=== PATIENT | female | born 1965 | race Caucasian/White ===

== ENCOUNTER 2024-03-20 16:31 | Inpatient (IN) | payer OTHER, SELFPAY ==
[2024-03-20] VITALS (7 sets, daily range): BP systolic 98–113; BP diastolic 57–69; BMI 24.4; BMI 23.9
--- NOTE | 2024-03-20 13:44 | ED.GENMED ---
History of Present Illness
General
Chief Complaint: Fever
Source: patient
Exam Limitations: none
Time Seen by Provider: 03/20/24 13:15
History of Present Illness
History of Present Illness:
58-year-old female with history of ulcerative colitis followed by GI presents with persistent abdominal discomfort and bloody diarrhea over the past several weeks. She was actually due for colonoscopy tomorrow. She was due to start her prep this
morning but noted she had a temperature of 100.2. She spoke with her GI team who advised she come here. She denies runny nose cough or congestion. No chest pain or shortness of breath. She does note fatigue. She notes ongoing bloody diarrhea.
No other complaints at this time
Past History
Past History
ED Past Medical History: Other (UC)
ED Past Surgical History: None
Social History
Tobacco: Non-smoker
Personal:
Living: with family
Employment: Employed
Phy Exam
Physical Exam
Physical Exam:
General: Well-appearing female no acute respiratory distress
HEENT: Normocephalic atraumatic
Heart: Regular rate and rhythm
Lungs: Clear no wheeze
Abdomen is soft mildly diffusely tender no guarding or rebound normal bowel sounds
Extremities: No cyanosis
Skin: Warm no rash
Course
Orders/Labs/Results
Orders:
Orders
03/20/24 13:42
STOOL [C difficile Antigen & Toxins] Urgent
TRE Source: Feces/Stool
Specimen Description:
Stool Culture Urgent
TRE Source: Feces/Stool
Specimen Description:
0.9% Sodium Chloride 1000 ml [Nss] 1,000 ml IV BOLUS
03/20/24 13:43
CR Obstruct Series W/pa Chest Urgent
Comment:
Reason For Exam: abdominal pain
03/20/24 13:48
EKG [Electrocardiogram (*1)] Urgent
Reason for Study: Chest Pain
EKG- Treatment ONCE
03/20/24 14:00
CMP [Comprehensive Metabolic Panel] Urgent
Complete Blood Count/With Diff Urgent
Urinalysis Reflex To Culture Urgent
Date Specimen was Collected: 03/20/24
Time Specimen was Collected: 13:40
Abnormal Lab Results
03/20/24
14:00
WBC 3.5 L 10^3/uL
(4.8-10.8)
RBC 2.63 L 10^6/uL
(4.20-5.40)
Hgb 9.5 L g/dL
(12.0-16.0)
Hct 27.1 L %
(37.0-47.0)
MCV 103.0 H fL
(81.0-99.0)
MCH 36.1 H pg
(27.0-31.0)
RDW 21.1 H %
(11.5-14.5)
Absolute Lymphs (auto) 0.8 L 10^3/uL
(1.2-3.4)
Immature Gran % 0.8 H %
(0-0.5)
Monocytes % 10.5 H %
(1.7-9.3)
Total Protein 5.6 L g/dl
(6.3-8.2)
03/20/24 14:00
03/20/24 14:00
Vital Signs
Initial and Last Documented VS:
Initial Vital Signs
Temp Pulse Resp BP Pulse Ox
100.0 F 78 20 113/66 98
03/20/24 12:59 03/20/24 12:59 03/20/24 12:59 03/20/24 12:59 03/20/24 12:59
Last Documented Vital Signs
Temp Pulse Resp BP Pulse Ox
100.0 F 74 12 113/69 99
03/20/24 12:59 03/20/24 14:00 03/20/24 14:00 03/20/24 13:41 03/20/24 14:00
MDM/Problems Addressed
Differential Diagnosis Includes:
Abdominal pain with bloody diarrhea persistent over the past several months. This is consistent with her history of ulcerative colitis. She had a temperature today of 100.2 at home. There was questionable UTI as an outpatient. Will recheck
urine. Stool cultures ordered if patient goes. Check basic labs and hydrate. Discussed findings with GI. Is likely she will need admission to hospital
*Critical Care Note
Total Time (30-74mins, 75-104mins- exclusive of procedures): Not Applicable
Update Note
Update Note:
Reviewed labs. White blood cell count is low. Hemoglobin noted. Discussed with GI who saw the patient. They plan on admitting for colonoscopy tomorrow
ED Attending Note
-
Portions of this chart may have been created with voice recognition software.� Occasional wrong word or��sound alike� substitutions may have occurred due to the inherent limitations of voice recognition software.
Discharge Plan
Departure
Patient Disposition: Admit
Date of Disposition: 03/20/24
Time of Disposition: 15:19
Admit to: Telemetry
Presentation/result/management discussed w/ accepting MD/DO: Hospitalist
Discharge Problem:
Abdominal pain
Prescriptions:
No Action
prednisone 10 MG tablet
10 mg PO .TAPER Qty: 30 0RF
Rx Instructions:
Take [id number], 33tge0ogso, 85dir7mmgl, 95vza6gpmt, 58eaf4zpqj
hydrocodone-acetaminophen 5 MG/500 MG tablet
1 tab PO .Q4-6HPRN PRN (Reason: PAIN) Qty: 20 0RF
diazepam 2 MG tablet
2 mg PO TIDPRN PRN (Reason: pain/spasm) Qty: 20 0RF
prednisone 50 MG tablet
50 mg PO DAILY Qty: 4 0RF
diazepam [Valium] 5 MG tablet
5 mg PO Q8 PRN (Reason: spasm) Qty: 12 0RF
Referrals:
Dahiana Rene CRNP [Family Provider] -
Interventions
Interventions:
*Risk Screen - Suicide Last Done: 03/20/24 12:58
*General Assessment Last Done: 03/20/24 12:59
*Neglect/Abuse Screening Last Done: 03/20/24 12:59
ED- Fall Risk Assessment Last Done: 03/20/24 13:39
*ED COVID-19 Vaccine History Last Done: 03/20/24 13:39
ED- Neurological Assessment Last Done: 03/20/24 13:39
ED-Skin Assessment Last Done: 03/20/24 13:39
Discharge Date and Time
Print Language: MONGOLIAN
[2024-03-20] MEDS: NSS 1000 IV (14:05)
[2024-03-20 14:18] LABS: Hematocrit 27.1 % (37.0-47.0); Hemoglobin 9.5 g/dL (12.0-16.0); Mean Corp Hgb Conc. 35.1 g/dL (33.0-37.0); Mean Corpuscular Hgb 36.1 pg (27.0-31.0); Mean Platelet Volume 9.6 fL (7.4-10.4); Platelet Count 361 10^3/uL (130-400); Red Blood Cell Count 2.63 10^6/uL (4.20-5.40); Red Cell Dist. Width 21.1 % (11.5-14.5); White Blood Cell Count 3.5 10^3/uL (4.8-10.8)
[2024-03-20 14:19] LABS: Urine Albumin Negative (Neg - Trace); Urine Bilirubin Negative (Negative); Urine Character Clear (Clear); Urine Color Straw; Urine Glucose Negative (Negative); Urine Ketone Negative (Negative); Urine Leukocyte Negative (Negative); Urine Nitrite Negative (Negative); Urine Occult Blood Negative (Negative); Urine Urobilinogen Negative (Neg - 1+); Urine pH 6.5 (5.0-9.0)
[2024-03-20 14:30] LABS: ALT (SGPT) 13 U/L (0-35); AST (SGOT) 15 U/L (14-36); Albumin 3.5 g/dl (3.5-5.0); Alkaline Phosphatase 59 U/L (38-126); Blood Urea Nitrogen 16 mg/dl (7-17); Calcium 9.1 mg/dl (8.4-10.2); Carbon Dioxide 26 mmol/L (22-30); Chloride 101 mmol/L (98-107); Estimated Creatinine Clearance 65 ml/min; Glucose 97 mg/dl (70-99); Potassium 3.8 mmol/L (3.5-5.1); Sodium 135 mmol/L (135-145); Total Bilirubin 0.5 mg/dl (0.2-1.3); Total Protein 5.6 g/dl (6.3-8.2); eGFR > 60.00
[2024-03-20 14:40] LABS: % Basophils 0.8 % (0-2); % Eosinophils 0.6 % (0-6); % Immature Granulocytes 0.8 % (0-0.5); % Lymphocytes 22.9 % (20.5-51.1); % Monocytes 10.5 % (1.7-9.3); % Neutrophils 64.4 % (42.2-75.2); Absolute Lymphocytes 0.8 10^3/uL (1.2-3.4); Absolute Monocytes 0.4 10^3/uL (0.1-0.6); Absolute Neutrophils 2.3 10^3/uL (1.4-6.5); Nucleated Red Blood Cells % 0 %
--- NOTE | 2024-03-20 16:03 | HPS.HSE ---
Addendum entered and electronically signed by Mary Guthrie MD 03/20/24 16:16:
Plan for colonoscopy tomorrow.
Original Note:
Family Physician
-
Family Physician: Dahiana Rene
Chief Complaint
-
bloody diarrhea
History of Present Illness
58-year-old female past medical history of ulcerative colitis, osteoporosis, presenting with persistent abdominal discomfort and bloody diarrhea over the past several weeks. She was due for colonoscopy tomorrow. She was supposed to start prep this
morning but had a temperature of 100.2. She has been tapering off of steroids for the past few weeks. She spoke with her GI doctor Dr. Joya told her to come here. She has had nausea without vomiting.
She takes 6-mercaptopurine, allopurinol and Apriso which she has been on for many years for ulcerative colitis.
She denies smoking or alcohol use or marijuana use.
Medical History
Past Medical History
Past Medical History: Reports Other (ulcerative colitis, osteoporosis)
Past Surgical History: Reports None
Social History
Tobacco: Non-smoker
Alcohol: None
Drug: None
Family History
Family History: Not pertinent
Allergies / Home Medications
Allergies reflects when Allergies were last updated in [facility].
Home Medications with original date entered in [facility]
Allergy/Medication List:
Allergies
Allergy/AdvReac Type Severity Reaction Status Date / Time
No Known Allergies Allergy Verified 03/20/24 13:03
Home Medications
diazepam 2 mg tablet 2 mg PO TIDPRN PRN pain/spasm #20 tabs 12/07/12
hydrocodone 5 mg-acetaminophen 500 mg tablet 1 tab PO .Q4-6HPRN PRN PAIN ##20 12/07/12
prednisone 10 mg tablet 10 mg PO .TAPER #30 tabs 12/07/12
diazepam 5 mg tablet (Valium) 5 mg PO Q8 PRN spasm #12 tabs 03/14/21
prednisone 50 mg tablet 50 mg PO DAILY #4 tabs 09/05/20
Review of Systems
-
History Source: Patient
A 12 point ROS was completed and negative except as noted: Yes
Constitutional: Reports No Symptoms
EENT: Reports No Symptoms
Respiratory: Reports No Symptoms
Cardiac: Reports No Symptoms
Abdomen/GI: Reports See HPI
: Reports No Symptoms
Musculoskeletal: Reports No Symptoms
Skin: Reports No Symptoms
Neurological: Reports No Symptoms
Endocrine: Reports No Symptoms
Hematologic/Lymphatic: Reports No Symptoms
Psych: Reports No Symptoms
Physical Exam
Vital Signs
Vital Signs
Temp Pulse Resp BP Pulse Ox
100.0 F 74 12 113/69 99
03/20/24 12:59 03/20/24 14:00 03/20/24 14:00 03/20/24 13:41 03/20/24 14:00
Physical Exam
General: Well Developed, Well Nourished and No Apparent Distress
HEENT: NormoCephalic, Moist mucous membranes and Atraumatic
Respiratory: Clear
Cardiac: S1/S2 and Regular Rhythm; No Murmur or Rub
GI: Soft, Non Tender, Non Distended and Normal Bowel Sounds; No Organomegaly
Rectal: Deferred by Provider
Musculoskeletal: No Clubbing, No Cyanosis and No Edema
Skin: No Rash
Neuro: Nonfocal/grossly intact
Laboratory Results
-
03/20/24 14:00
03/20/24 14:00
Laboratory Results
Total Bilirubin 0.5 mg/dl (0.2-1.3) 03/20/24 14:00
AST 15 U/L (14-36) 03/20/24 14:00
ALT 13 U/L (0-35) 03/20/24 14:00
Alkaline Phosphatase 59 U/L (38-126) 03/20/24 14:00
Data Reviewed
-
Lab Data: Labs Reviewed by me
Old Records: Reviewed
Impression/Plan
-
IMPRESSION:
PLAN:
# Ulcerative colitis flare
-Check stool culture, C. difficile
-Abdominal x-ray shows nonobstructive bowel gas pattern, mild colonic stool burden
-N.p.o.
-Continue IV fluids
-GI consulted
Acute blood loss anemia
-Hemoglobin 9.5
-Baseline around 12
-check iron studies, b12 and folate
Leukopenia
-Unknown chronicity
Osteoporosis
Full code
DVT prophylaxis�SCDs
N.p.o.
--- NOTE | 2024-03-20 16:13 | CON.GI ---
Consultation
-
Date/Time Consultation Requested: 03/20/24 at 2pm
Date/Time Consultation Performed: 03/20/24 at 3;30
Requesting Provider: Medina
Performing Provider: Cici
Reason for Consultation: UC flare
Medical History
Chief Complaint / HPI
Chief Complaint: abd pain, diarrhea
History of Present Illness:
This patient is a 58-year-old woman who has a history of longstanding ulcerative colitis. She is currently being treated with 6-mercaptopurine and Apriso. She recently saw Dr. Joya in our office on Sunday and was scheduled to have a
colonoscopy tomorrow as an outpatient to evaluate her chronic symptoms which appear to be worse. She states she had more lower abdominal cramps and rectal pain. She also was waking up with diarrhea. The diarrhea is pretty constant as she always
has been having but it was causing a lot of rectal pain due to the increase in number. She denies any nausea or vomiting. She was having some mild low-grade temperatures of 100.2 but never mounted a true fever. She does not have a cough or cold.
She does think this is part of her GI issues. She was put on prednisone 40 mg just tapered to 30. She has had many colonoscopies in the past as an outpatient.
Past Medical History
Past Medical History: Other (Ulcerative colitis)
Social History
Tobacco: Non-Smoker
Family History
Family History: Reviewed & Not Pertinent
Allergies / Home Medications
Allergy/AdvReac Type Severity Reaction Status Date / Time
No Known Allergies Allergy Verified 03/20/24 13:03
�Medication �Instructions �Recorded
diazepam 2 mg tablet 2 mg PO TIDPRN PRN pain/spasm #20 12/07/12
tabs
hydrocodone 5 mg-acetaminophen 500 1 tab PO .Q4-6HPRN PRN PAIN ##20 12/07/12
mg tablet
prednisone 10 mg tablet 10 mg PO .TAPER #30 tabs 12/07/12
diazepam 5 mg tablet (Valium) 5 mg PO Q8 PRN spasm #12 tabs 09/05/20
prednisone 50 mg tablet 50 mg PO DAILY #4 tabs 09/05/20
Review of Systems
-
All other systems: A 12 pt ROS was Negative except as stated above in HPI
Vital Signs
Temp Pulse Resp BP Pulse Ox
100.0 F 74 12 113/69 99
03/20/24 12:59 03/20/24 14:00 03/20/24 14:00 03/20/24 13:41 03/20/24 14:00
Physical Exam
Exam
General: No Apparent Distress
Cardiac: S1/S2
GI: Soft and Non Tender (mild lower abdominal tenderness)
Rectal: Other (no obvious fissures)
Neuro: AO x 3
Psych: Calm
Results
WBC 3.5 10^3/uL (4.8-10.8) L 03/20/24 14:00
Hgb 9.5 g/dL (12.0-16.0) L 03/20/24 14:00
Hct 27.1 % (37.0-47.0) L 03/20/24 14:00
MCV 103.0 fL (81.0-99.0) H 03/20/24 14:00
Plt Count 361 10^3/uL (130-400) 03/20/24 14:00
Absolute Neuts (auto) 2.3 10^3/uL (1.4-6.5) 03/20/24 14:00
Sodium 135 mmol/L (135-145) 03/20/24 14:00
Potassium 3.8 mmol/L (3.5-5.1) 03/20/24 14:00
Chloride 101 mmol/L (98-107) 03/20/24 14:00
Carbon Dioxide 26 mmol/L (22-30) 03/20/24 14:00
BUN 16 mg/dl (7-17) 03/20/24 14:00
Creatinine 0.8 mg/dL (0.6-1.0) 03/20/24 14:00
Calcium 9.1 mg/dl (8.4-10.2) 03/20/24 14:00
Total Bilirubin 0.5 mg/dl (0.2-1.3) 03/20/24 14:00
AST 15 U/L (14-36) 03/20/24 14:00
ALT 13 U/L (0-35) 03/20/24 14:00
Alkaline Phosphatase 59 U/L (38-126) 03/20/24 14:00
Assessment / Plan
-
This patient is a 58-year-old woman with a history of longstanding ulcerative colitis who was having a flare. Her flare sounds more distal as it does sound like she is having more tenesmus. She is not on Canasa suppositories but is on oral
steroids. abdominal xray non specific with no dilation. For now we will do the following;
1. colonoscopy tomorrow. THE PATIENT CAN ONLY TOLERATE ONE PREP AND BROUGHT IT IN. WILL PUT IN ORDER FOR HER TO USE HER HOME PREP
2. IVF
3. w/u if fever occurs
4. monitor hgb
5. management to be determined based on colonoscopy
-
-
Thank you for consultation and allowing me to participate in the patient's care. Please call the head of digital advertising & integration GI physician during the after hours with any questions or concerns.
[2024-03-20 19:37] LABS: Iron 31 ug/dl (37-170)
[2024-03-20 19:46] LABS: Percent Saturation 14 % (20-50); Total Iron Binding Capacity 215 ug/dl (265-497)
[2024-03-20 20:20] LABS: Ferritin 54.1 ng/ml (11.1-264.0)
[2024-03-20] MEDS: NON-FORMULARY ITEM 1 UNIT PO (20:27)
[2024-03-20 20:51] LABS: Folate 18.1 ng/ml (2.76-20); Vitamin B12 > 1000 pg/ml (239-931)
--- NOTE | 2024-03-20 23:58 | PTCARENOTE ---
Sarai KRAUS aware that pt refused to have IVF hooked up secondary to she is going to the bathroom frequently as a result of her bowel prep.
[2024-03-21] VITALS (7 sets, daily range): BP systolic 95–102; BP diastolic 53–59; BMI 23.9
[2024-03-21] MEDS: NON-FORMULARY ITEM 1 UNIT PO (05:48)
[2024-03-21 08:09] LABS: Hematocrit 30.4 % (37.0-47.0); Hemoglobin 10.6 g/dL (12.0-16.0); Mean Corp Hgb Conc. 34.9 g/dL (33.0-37.0); Mean Corpuscular Hgb 37.9 pg (27.0-31.0); Mean Corpuscular Volume 108.6 fL (81.0-99.0); Mean Platelet Volume 9.8 fL (7.4-10.4); Platelet Count 393 10^3/uL (130-400); White Blood Cell Count 4.1 10^3/uL (4.8-10.8)
[2024-03-21 08:39] LABS: ALT (SGPT) 16 U/L (0-35); AST (SGOT) 16 U/L (14-36); Alkaline Phosphatase 58 U/L (38-126); Blood Urea Nitrogen 8 mg/dl (7-17); Calcium 9.5 mg/dl (8.4-10.2); Carbon Dioxide 26 mmol/L (22-30); Chloride 102 mmol/L (98-107); Estimated Creatinine Clearance 75 ml/min; Glucose 115 mg/dl (70-99); Potassium 4.5 mmol/L (3.5-5.1); Sodium 143 mmol/L (135-145); Total Bilirubin 0.6 mg/dl (0.2-1.3); Total Protein 6.3 g/dl (6.3-8.2); eGFR > 60.00
[2024-03-21 08:50] LABS: % Eosinophils 0.5 % (0-6); % Immature Granulocytes 1.2 % (0-0.5); % Lymphocytes 29.2 % (20.5-51.1); % Neutrophils 60.1 % (42.2-75.2); Absolute Immature Granulocytes 0.1 10^3/uL (0-0.05); Absolute Lymphocytes 1.2 10^3/uL (1.2-3.4); Absolute Monocytes 0.3 10^3/uL (0.1-0.6); Absolute Neutrophils 2.5 10^3/uL (1.4-6.5); Anisocytosis 2+; Normal RBC Morphology No; Nucleated Red Blood Cells % 0.5 %; Ovalocytes 1+; Polychromasia 1+
[2024-03-21 08:51] LABS: Acanthocytes Occasional; Hypochromasia 1+
[2024-03-21 08:52] LABS: Macrocytosis 1+
--- NOTE | 2024-03-21 13:27 | W.PN.HOSP.TC ---
Today's Communication/Plan
-
see outlined plan
Assessment / Plan
Assessment / Plan
Assessment:
hx of chronic Ulcerative colitis with possible flare
- GI consulted
- check stool studies
- colonoscopy today
- continue IVF
Acute blood loss anemia
- Hemoglobin 10.6
- Baseline around 12
- follow iron studies, b12 and folate
Leukopenia
- most likely from home mercaptopurine therapy
- monitor for infectious signs
Osteoporosis
DVT ppx: SCDs
Code: Full
Anticipated Discharge: 24 - 48 hours
Subjective/Interval History
-
Date of Service: March 21, 2024
reports some cramps
Objective Data
-
Labs:
Laboratory Results
03/21/24
06:55
WBC 4.1 L
Hgb 10.6 L
Hct 30.4 L
Plt Count 393
Sodium 143 D
Potassium 4.5
Chloride 102
Carbon Dioxide 26
BUN 8
Creatinine 0.7
Glucose 115 H
Calcium 9.5
Total Bilirubin 0.6
AST 16
ALT 16
Alkaline Phosphatase 58
Vital Signs:
Vital Signs
Temp Pulse Resp BP Pulse Ox
99 F 67 20 98/53 95
03/21/24 08:24 03/21/24 08:24 03/21/24 08:24 03/21/24 08:24 03/21/24 08:24
I&O
03/20/24 03/21/24 03/22/24
06:59 06:59 06:59
Intake Total 960 / 960
Balance 960 / 960
Physical Exam
-
General: No Apparent Distress
HEENT: Normocephalic and Atraumatic
Respiratory: Negative Wheezes
Cardiac: Regular Rhythm and S1/S2
GI: Nontender and Nondistended
Musculoskeletal: No Edema
Neuro: AO x 3
Psych: Calm
Data Reviewed
-
Total Time Spent with Patient (in minutes): 41
Labs: Labs Reviewed by me
--- NOTE | 2024-03-21 15:40 | W.DS.TRANS ---
DC Summary - Family Law Legal Assistant
-
Discharge Instructions:
Discharge Diagnosis/Procedures concern for UC flare with colonoscopy
Diet Low Residue
Activity As tolerated
Instructions:
Stand-Alone Forms:
Changes to Home Medications: No
Discharge Medications:
DC Medications w/original date entered in [employer]
allopurinol 100 mg tablet 100 mg PO DAILY 03/20/24
mercaptopurine 50 mg tablet 50 mg PO DAILY 03/20/24
mesalamine 0.375 gram capsule,extended release 24 hr (Apriso) 0.75 g PO DAILY 03/20/24
prednisone 10 mg tablet 40 mg PO DAILY@1500 03/20/24
Home Medication Changes
Pending Results: No
Total time spent discharging patient (in min): 41
--- NOTE | 2024-03-22 09:12 | CM ---
met with patient at bedside.patient lives with in hous with [address],hre bed and bath is on the second level.she amb i and is i with hr adl.she has had no vn or ip rehab history.she has no dme.
PCP: dr live Pharmacy:[facility].
patient is adm with UC flare with bloody diarrhea.ivf,colonoscopy,,checking stools,monitor hgb.patient stable for dc home with no needs.
== END 2024-03-21 19:17 | disposition home or self-care (01) | DRG 386 ==
LOC: 4 WEST ACU 16:31
PROVIDERS: Physician Assistant; ADMITTING PHYSICIAN Hospitalist; ATTENDING PHYSICIAN Internal Medicine; EMERGENCY PHYSICIAN Student in an Organized Health Care Education/Training Program; FAMILY PHYSICIAN Nurse Practitioner
DX: K51.911 Ulcerative colitis, unspecified with rectal bleeding (principal); D62 Acute posthemorrhagic anemia; D70.2 Other drug-induced agranulocytosis; T45.1X5A Adverse effect of antineoplastic and immunosuppressive drugs, initial encounter; M81.0 Age-related osteoporosis without current pathological fracture; Z79.899 Other long term (current) drug therapy; Z79.52 Long term (current) use of systemic steroids
CPT/HCPCS: 88305; 74022; 80053; 81003; 82607; 82728; 82746; 83540; 83550; 85025; 87045; 87046; 87077; 87324; 87427; 87449; 88342; 93005; 96360; 99285

== ENCOUNTER → 2024-04-10 15:07 | Outpatient (REF) | payer OTHER, SELFPAY | LOC: RAD 15:07 | PROVIDERS: ATTENDING PHYSICIAN Family Medicine | DX: M79.669 Pain in unspecified lower leg (principal) | CPT/HCPCS: 93971 ==

== ENCOUNTER → 2024-06-09 13:10 | Outpatient (REF) | payer OTHER, SELFPAY | LOC: HWWDC 13:10 | PROVIDERS: ATTENDING PHYSICIAN Nurse Practitioner Adult Health; FAMILY PHYSICIAN Family Medicine | DX: Z12.31 Encounter for screening mammogram for malignant neoplasm of breast (principal) | CPT/HCPCS: 77063; 77067 ==

== ENCOUNTER → 2024-06-24 09:42 | Outpatient (REF) | payer OTHER, SELFPAY | LOC: RAD 09:42 | PROVIDERS: ATTENDING PHYSICIAN Internal Medicine Rheumatology; FAMILY PHYSICIAN Family Medicine | DX: M81.0 Age-related osteoporosis without current pathological fracture (principal); Z13.820 Encounter for screening for osteoporosis | CPT/HCPCS: 77080 ==

== ENCOUNTER → 2024-07-10 12:33 | Outpatient (REF) | payer BC, SELFPAY | LOC: RAD 12:33 | PROVIDERS: ATTENDING PHYSICIAN Internal Medicine Hematology & Oncology; FAMILY PHYSICIAN Family Medicine | DX: I82.401 Acute embolism and thrombosis of unspecified deep veins of right lower extremity (principal) | CPT/HCPCS: 93971 ==

== ENCOUNTER → 2024-07-18 09:14 | Outpatient (REF) | payer BC, SELFPAY | LOC: PAVMRI 09:14 | PROVIDERS: ATTENDING PHYSICIAN Internal Medicine; FAMILY PHYSICIAN Family Medicine | DX: K51.90 Ulcerative colitis, unspecified, without complications (principal); N82.3 Fistula of vagina to large intestine | CPT/HCPCS: 72197; A9575 ==

== ENCOUNTER → 2024-07-28 14:19 | Outpatient (REF) | payer SELFPAY | LOC: RAD 14:19 | PROVIDERS: ATTENDING PHYSICIAN Family Medicine | DX: Z13.6 Encounter for screening for cardiovascular disorders (principal) | CPT/HCPCS: 75571 ==

== ENCOUNTER → 2024-09-03 13:59 | Outpatient (REF) | payer BC, SELFPAY | LOC: HWRAD 13:59 | PROVIDERS: ATTENDING PHYSICIAN Family Medicine | DX: M79.672 Pain in left foot (principal) | CPT/HCPCS: 73650 ==

== ENCOUNTER → 2024-09-08 06:50 | Outpatient (REF) | payer BC, SELFPAY | LOC: PAVMRI 06:50 | PROVIDERS: ATTENDING PHYSICIAN Family Medicine | DX: M79.672 Pain in left foot (principal) | CPT/HCPCS: 73718 ==

== ENCOUNTER 2024-12-08 16:13 | Emergency (ER) | payer BC, SELFPAY ==
[2024-12-08 16:15] VITALS: BP 132/76
[2024-12-08 16:51] LABS: Urine Albumin Negative (Neg - Trace); Urine Bilirubin Negative (Negative); Urine Character Clear (Clear); Urine Color Yellow; Urine Glucose Negative (Negative); Urine Ketone 2+ (Negative); Urine Leukocyte 1+ (Negative); Urine Nitrite Negative (Negative); Urine Occult Blood 3+ (Negative); Urine Specific Gravity 1.015 (<1.030); Urine Urobilinogen Negative (Neg - 1+)
[2024-12-08 16:52] LABS: % Basophils 0.3 % (0-2); % Eosinophils 0.1 % (0-6); % Immature Granulocytes 0.2 % (0-0.5); % Lymphocytes 9.4 % (20.5-51.1); % Monocytes 5.3 % (1.7-9.3); % Neutrophils 84.7 % (42.2-75.2); Absolute Lymphocytes 0.9 10^3/uL (1.2-3.4); Absolute Monocytes 0.5 10^3/uL (0.1-0.6); Absolute Neutrophils 8.2 10^3/uL (1.4-6.5); Hematocrit 41.2 % (37.0-47.0); Hemoglobin 13.5 g/dL (12.0-16.0); Mean Corp Hgb Conc. 32.8 g/dL (33.0-37.0); Mean Corpuscular Hgb 29.6 pg (27.0-31.0); Mean Corpuscular Volume 90.4 fL (81.0-99.0); Mean Platelet Volume 9.5 fL (7.4-10.4); Nucleated Red Blood Cells % 0 %; Platelet Count 225 10^3/uL (130-400); Red Blood Cell Count 4.56 10^6/uL (4.20-5.40); Red Cell Dist. Width 12.9 % (11.5-14.5); White Blood Cell Count 9.7 10^3/uL (4.8-10.8)
[2024-12-08 16:57] LABS: INR 0.96; PT 13.1 Sec (11.4-14.6)
[2024-12-08 17:06] LABS: Erythrocyte Sed Rate 2 mm/hour (0-20); Lactic Acid 0.9 mmol/L (0.7-2.0)
[2024-12-08 17:09] LABS: ALT (SGPT) 19 U/L (0-35); AST (SGOT) 20 U/L (14-36); Albumin 4.3 g/dl (3.5-5.0); Alkaline Phosphatase 63 U/L (38-126); Blood Urea Nitrogen 16 mg/dl (7-17); Calcium 9.6 mg/dl (8.4-10.2); Carbon Dioxide 26 mmol/L (22-30); Chloride 104 mmol/L (98-107); Glucose 103 mg/dl (70-99); Potassium 4.1 mmol/L (3.5-5.1); Sodium 135 mmol/L (135-145); Total Bilirubin 0.7 mg/dl (0.2-1.3); Total Protein 6.8 g/dl (6.3-8.2); eGFR > 60.00
[2024-12-08 17:10] LABS: Urine Mucus Few; Urine Squamous Cell 0-2 /LPF (Few)
[2024-12-08 17:10] LABS: Lipase 86 U/L (23-300)
[2024-12-08 17:11] LABS: Urine Bacteria Few (Negative)
[2024-12-08 17:20] LABS: Troponin I < 0.012 ng/ml
[2024-12-08] MEDS: NSS 1000 IV (18:10)
[2024-12-08] MEDS: OFIRMEV 100 IV (18:10)
[2024-12-08 18:19] VITALS: BP 121/65; BMI 23.3
[2024-12-08] MEDS: MORPHINE SULFATE 2 MG IV (18:25)
[2024-12-08] MEDS: ZOFRAN 4 MG IV (18:26)
[2024-12-08] MEDS: DILAUDID 0.5 MG IV (19:22)
[2024-12-08 19:24] VITALS: BP 107/62
[2024-12-08] MEDS: TORADOL 15 MG IV (19:24)
[2024-12-08] MEDS: PEPCID 20 MG IV (19:30)
--- NOTE | 2024-12-08 19:48 | ED.GENMED ---
History of Present Illness
<Shonda Spangler NP - Last Filed: 12/09/24 00:37>
General
Chief Complaint: Fever
Source: patient
Exam Limitations: none
Time Seen by Provider: 12/08/24 17:31
Nursing documentation reviewed up to this point in time: agreed with
History of Present Illness
History of Present Illness:
Patient to ED wt complaint of fever x 3 days. Stats this afternoon she developed right jaw and left groin pain. No swelling or redness. Not taking anything for pain or fever. States she has a history of ulcerative colitis and most medications
aggravate her colitis. Last PM she developed an itchy rash to torso and trunk. SHe reports she started Inflectra infusion 3 weeeks ago for her UC. Concerned that this is causing her symptoms.
Past History
<Shonda Spangler NP - Last Filed: 12/09/24 00:37>
Past History
ED Past Medical History: Other (UC, DVT)
ED Past Surgical History: None
Social History
Tobacco: Non-smoker
Personal:
Living: with family
Employment: Employed
Review of Systems
<Shonda Spangler NP - Last Filed: 12/09/24 00:37>
Review of Systems
All Other Systems: ROS reviewed and negative except as documented in HPI and ROS
Constitutional: Reports fever and fatigue
EENT: Reports no symptoms
Respiratory: Reports no symptoms
Cardiac: Reports no symptoms
ABD/GI: Reports no symptoms
: Reports no symptoms
Musculoskeletal: Reports joint pain (pain to right jaw, left groin)
Skin: Reports other (itchy rash to trunk and neck last PM, resolved own.)
Neurological: Reports weakness
Psychiatric: Reports no symptoms
Phy Exam
<Shonda Spangler NP - Last Filed: 12/09/24 00:37>
General Physical Exam
General Presentation: moderate distress
General age: appears stated age
General Skin: warm and dry
General Habitus: normal
General Mental: alert
ENT Exam
ENT Exam: EOMI, TM's normal, pharynx normal, neck supple, normocephalic and swallowing well
Cardiovascular Exam
Cardiovascular Exam: regular rate/rhythm and no edema
Pulmonary Exam
Pulmonary Exam: lungs clear and no respiratory distress
Gastrointestinal Exam
Gastrointestinal Exam: normal bowel sounds, non tender, soft, no organomegaly and non distended
Neurological Exam
Neurological Exam: alert, oriented x3 and CN II-XII intact
Musculoskeletal Exam
Musculoskeletal Exam: neuro vasc intact
Skin Exam
Skin Exam: normal color, warm/dry and no rash
Psychiatric Exam
Psychiatric Exam: normal mood/affect
Course
<Shonda Spangler MOTOR SETTER - Last Filed: 12/09/24 00:37>
Orders/Labs/Results
Orders:
Orders
12/08/24 16:20
ECG [Electrocardiogram (*1)] Urgent
Reason for Study: Other
Other Reason for Exam: jaw pain
EKG- Treatment ONCE
12/08/24 16:32
CRP [C-Reactive Protein] Urgent
Complete Blood Count/With Diff Urgent
Comprehensive Metabolic Panel Urgent
Creatine Phosphokinase Urgent
Comment: ADDON
Erythrocyte Sed Rate Urgent
Lactic Acid Urgent
Lipase Urgent
Prothrombin Time Urgent
Troponin I Urgent
12/08/24 16:42
Urinalysis Reflex To Culture Urgent
Date Specimen was Collected: 12/08/24
Time Specimen was Collected: 16:20
Urine Microscopic Reflex Cult Urgent
Urine Culture Urgent
TRE Source: U
Specimen Description:
Date Specimen was Collected: 12/08/24
Time Specimen was Collected: 16:20
12/08/24 17:54
0.9% Sodium Chloride 1000 ml [Nss] 1,000 ml IV BOLUS
Acetaminophen 1000MG/100Ml [Ofirmev] 1,000 mg in 100 ml IV ONCE
Acetaminophen IV Indication:: No MS & No Enteral Access
12/08/24 18:09
Lyme Progressive Urgent
12/08/24 18:20
Morphine Sulfate 2 mg IV NOW STA
Ondansetron HCl [Zofran] 4 mg PO NOW STA
12/08/24 18:24
Ondansetron Injectable [Zofran] 4 mg .ROUTE .STK-MED ONE
12/08/24 18:26
Ondansetron Injectable [Zofran] 4 mg IV NOW STA
12/08/24 18:47
HYDROmorphone [Dilaudid] 0.5 mg IV NOW STA
12/08/24 18:59
Ketorolac [Toradol] 15 mg IV NOW STA
12/08/24 19:24
Famotidine [Pepcid] 20 mg IV NOW STA
12/08/24 20:06
Blood Culture Urgent
TRE Source: Blood/Venous
Specimen Description:
12/08/24 20:30
Add On- LAB Urgent
Tests Added?: CPK
12/08/24 21:25
CT Facial Bones W/o Iv Contras Urgent
Comment:
Reason For Exam: Right facial pain
Pelvis w Contrast CT [CT Pelvis With Iv Contrast] Urgent
Comment:
Reason For Exam: pain
Abnormal Lab Results
12/08/24 12/08/24
16:32 16:42
MCHC 32.8 L g/dL
(33.0-37.0)
Absolute Neuts (auto) 8.2 H 10^3/uL
(1.4-6.5)
Absolute Lymphs (auto) 0.9 L 10^3/uL
(1.2-3.4)
Neutrophils % 84.7 H %
(42.2-75.2)
Lymphocytes % 9.4 L %
(20.5-51.1)
Glucose 103 H mg/dl
(70-99)
C-Reactive Protein 34.40 H mg/L
(0.0-10.00)
Urine Ketones 2+ A
(Negative)
Ur Occult Blood Reflex 3+ A
(Negative)
Leukocyte Esterase Rfl 1+ A
(Negative)
Urine RBC 7-10 A /HPF
(0-2)
Urine Bacteria (Reflex) Few A
(Negative)
12/08/24 16:32
12/08/24 16:32
Vital Signs
Initial and Last Documented VS:
Initial Vital Signs
Temp Pulse Resp BP Pulse Ox
100.5 F H 82 20 132/76 98
12/08/24 16:15 12/08/24 16:15 12/08/24 16:15 12/08/24 16:15 12/08/24 16:15
Last Documented Vital Signs
Temp Pulse Resp BP Pulse Ox
100.5 F H 68 15 90/58 96
12/08/24 16:15 12/08/24 22:03 12/08/24 22:03 12/08/24 22:03 12/08/24 22:03
<Rickey Cummings MD - Last Filed: 12/09/24 00:31>
Orders/Labs/Results
Orders:
Orders
12/08/24 16:20
ECG [Electrocardiogram (*1)] Urgent
Reason for Study: Other
Other Reason for Exam: jaw pain
EKG- Treatment ONCE
12/08/24 16:32
CRP [C-Reactive Protein] Urgent
Complete Blood Count/With Diff Urgent
Comprehensive Metabolic Panel Urgent
Creatine Phosphokinase Urgent
Comment: ADDON
Erythrocyte Sed Rate Urgent
Lactic Acid Urgent
Lipase Urgent
Prothrombin Time Urgent
Troponin I Urgent
12/08/24 16:42
Urinalysis Reflex To Culture Urgent
Date Specimen was Collected: 12/08/24
Time Specimen was Collected: 16:20
Urine Microscopic Reflex Cult Urgent
Urine Culture Urgent
TRE Source: U
Specimen Description:
Date Specimen was Collected: 12/08/24
Time Specimen was Collected: 16:20
12/08/24 17:54
0.9% Sodium Chloride 1000 ml [Nss] 1,000 ml IV BOLUS
Acetaminophen 1000MG/100Ml [Ofirmev] 1,000 mg in 100 ml IV ONCE
Acetaminophen IV Indication:: No MS & No Enteral Access
12/08/24 18:09
Lyme Progressive Urgent
12/08/24 18:20
Morphine Sulfate 2 mg IV NOW STA
Ondansetron HCl [Zofran] 4 mg PO NOW STA
12/08/24 18:24
Ondansetron Injectable [Zofran] 4 mg .ROUTE .STK-MED ONE
12/08/24 18:26
Ondansetron Injectable [Zofran] 4 mg IV NOW STA
12/08/24 18:47
HYDROmorphone [Dilaudid] 0.5 mg IV NOW STA
12/08/24 18:59
Ketorolac [Toradol] 15 mg IV NOW STA
12/08/24 19:24
Famotidine [Pepcid] 20 mg IV NOW STA
12/08/24 20:06
Blood Culture Urgent
TRE Source: Blood/Venous
Specimen Description:
12/08/24 20:30
Add On- LAB Urgent
Tests Added?: CPK
12/08/24 21:25
CT Facial Bones W/o Iv Contras Urgent
Comment:
Reason For Exam: Right facial pain
Pelvis w Contrast CT [CT Pelvis With Iv Contrast] Urgent
Comment:
Reason For Exam: pain
Abnormal Lab Results
12/08/24 12/08/24
16:32 16:42
MCHC 32.8 L g/dL
(33.0-37.0)
Absolute Neuts (auto) 8.2 H 10^3/uL
(1.4-6.5)
Absolute Lymphs (auto) 0.9 L 10^3/uL
(1.2-3.4)
Neutrophils % 84.7 H %
(42.2-75.2)
Lymphocytes % 9.4 L %
(20.5-51.1)
Glucose 103 H mg/dl
(70-99)
C-Reactive Protein 34.40 H mg/L
(0.0-10.00)
Urine Ketones 2+ A
(Negative)
Ur Occult Blood Reflex 3+ A
(Negative)
Leukocyte Esterase Rfl 1+ A
(Negative)
Urine RBC 7-10 A /HPF
(0-2)
Urine Bacteria (Reflex) Few A
(Negative)
12/08/24 16:32
12/08/24 16:32
Vital Signs
Initial and Last Documented VS:
Initial Vital Signs
Temp Pulse Resp BP Pulse Ox
100.5 F H 82 20 132/76 98
12/08/24 16:15 12/08/24 16:15 12/08/24 16:15 12/08/24 16:15 12/08/24 16:15
Last Documented Vital Signs
Temp Pulse Resp BP Pulse Ox
100.5 F H 68 15 90/58 96
12/08/24 16:15 12/08/24 22:03 12/08/24 22:03 12/08/24 22:03 12/08/24 22:03
<Shonda Spangler NP - Last Filed: 12/09/24 00:37>
*Radiology
Radiology exam reviewed: radiology read reviewed
*Pulse Oximetry
Patient hypoxic: no
*Critical Care Note
Total Time (30-74mins, 75-104mins- exclusive of procedures): Not Applicable
<Shonda Spangler NP - Last Filed: 12/09/24 00:37>
Update Note
Update Note:
Patient to ED with complaint of fever x 3 days, onset of right jaw and left groin pain today. Labs reviewed. WBC, lactic normal. CMP stable. CRP 34, sedrated and CPK normal. CT of jaw and pelvis without evidence of infections process. She was
place on Inflectra infusion 2 weeks ago Discussed case with dr. Akers who notes that these symptoms can be caused by the the inflectra infusion, pre-treatment may be needed for future infusions. Patient follows with Dr. Joya and will call
office in AM. Pain manageable with pain medication. Will discharge home, rx for oxycodone sent to her pharmacy. Given instructions on s/s to return ot ED and she is agreeable to plan.
ED Attending Note
<Shonda Spangler NP - Last Filed: 12/09/24 00:37>
-
Portions of this chart may have been created with voice recognition software.� Occasional wrong word or��sound alike� substitutions may have occurred due to the inherent limitations of voice recognition software.
<Rickey Cummings MD - Last Filed: 12/09/24 00:31>
ED Attending Note
Patient seen and examined by attending physician: Yes
ED Attending Note:
I have seen and evaluated the patient with a [id number] encounter. I have spoken to the advance practicer provider and involved in the medical history, the physical exam, medical decision making.
Evaluation and management service: agree unless noted differently below.
Results interpretation: agree unless noted differently below.
Focused HPI: 59-year-old female with a past medical history of ulcerative colitis presents to the ER for evaluation of hip and jaw pain, fever. Patient reports that she recently started infliximab 2 weeks ago for ulcerative colitis. About a week
after her initial treatment she began to experience generalized achiness. Over the past few days has had a low-grade fever and today started with left hip pain as well as right jaw pain and came to the ER for evaluation. No breathing troubles,
cough, diarrhea or vomiting. No abdominal pain.She did have some transient chest pain last week which resolved.
Physical exam: Awake alert no distress. Low-grade fever otherwise normal vitals. She has a benign abdominal exam. She has some mild pain on passive range of motion of the left hip but no redness or warmth of the joint, no edema in the left leg
with good pulses throughout left leg. She has no reproducible tenderness in the right TMJ, no swelling of the parotid or submental region, no auricular swelling or mastoid tenderness, right ear canal is clear and TM is normal with good light reflex.
Medical Decision Makin-year-old female who recently started infliximab for ulcerative colitis presents with low-grade fever and polyarthralgia. Vitals and exam as above. She was sent for lab work which showed no leukocytosis, no elevation of
these ESR, only marginally elevation of the CRP. CPK not elevated. She has no clear infection on urinalysis. She had CT the pelvis and facial bones which showed no acute bony pathology. Very low suspicion for septic arthritis with
polyarthralgia, no hip effusion, no leukocytosis, normal ESR, full range of motion in joints. Suspect likely related to recent initiation of infliximab. Nurse practitioner discussed with GI. Patient's symptoms were controlled here, plan for
discharge and outpatient follow-up.
Discharge Plan
Departure
Patient Disposition: Home (Routine Discharge)
Date of Disposition: 12/08/24
Time of Disposition: 23:59
Patient with high blood pressure during this ER visit?: No
Condition: Good
Covid-19: Not Applicable
Discharge Problem:
Polyarthralgia, Medication reaction
Instructions: Fever, Adult (DC), Adverse Drug Reactions, Adult ED
Prescriptions:
New
oxycodone 5 mg capsule
5 mg PO Q4H PRN (Reason: Pain) Qty: 14 0RF
No Action
allopurinol 100 mg Tablet
100 mg PO DAILY
mercaptopurine 50 mg Tablet
50 mg PO DAILY
mesalamine [Apriso] 0.375 gram Capsule,Extended Release 24hr
0.75 g PO DAILY
prednisone 10 MG tablet
40 mg PO DAILY@1500
Patient Comments:
03/20/24: Patient has plans to taper this drug, but no taper has been instructed yet.
Referrals:
Callum Stephen DO [Family Provider, Family Practice]
Activity Restrictions/Additional Instructions:
FOllow up with Dr. Joya in the AM. Return to the emergency department immediately for any changes in/worsening of your symptoms
Interventions
Interventions:
*Risk Screen - Suicide Last Done: 12/08/24 18:19
*General Assessment Last Done: 12/08/24 16:15
*Neglect/Abuse Screening Last Done: 12/08/24 18:19
*ED- Fall Risk Assessment Last Done: 12/08/24 22:24
*ED COVID-19 Vaccine History Last Done: 12/08/24 22:24
ED- Neurological Assessment Last Done: 12/08/24 18:19
ED-Skin Assessment Last Done: 12/08/24 19:39
Discharge Date and Time
Print Language: [place]
[2024-12-08 20:00] VITALS: BP 93/56
[2024-12-08 21:09] LABS: Creatine Phosphokinase 39 U/L (30-135)
[2024-12-08 22:03] VITALS: BP 90/58
[2024-12-08 23:00] VITALS: BP 103/64
[2024-12-09] VITALS: BP 98/62
[2024-12-09 00:51] VITALS: BP 100/57
== END 2024-12-09 01:15 | disposition home or self-care (01) ==
LOC: EMR 16:13
PROVIDERS: Emergency Medicine; Nurse Practitioner; EMERGENCY PHYSICIAN Emergency Medicine; FAMILY PHYSICIAN Family Medicine
DX: M25.50 Pain in unspecified joint (principal); Y92.9 Unspecified place or not applicable
CPT/HCPCS: 99284; 96374; 96375; 70486; 72193; 80053; 81003; 81015; 82550; 83605; 83690; 84484; 85025; 85610; 85652; 86140; 86618; 87040; 87086; 93005; Q9967

== ENCOUNTER → 2025-01-16 14:01 | Outpatient (REF) | payer BC, SELFPAY | LOC: RAD 14:01 | PROVIDERS: ATTENDING PHYSICIAN Family Medicine | DX: M25.569 Pain in unspecified knee (principal) | CPT/HCPCS: 73564 ==